=== PATIENT | male | born 1945 | race Caucasian/White ===

== ENCOUNTER → 2016-05-11 | Day surgery (SDC) | payer MEDICARE, OTHER, BC ==
[~2016-05-11] MED LIST: 1-ME1LIQ PO; ACETAMINOPHEN/HYDROcodone 325 MG/5 MG TAB ONE; BUPIVACAINE/EPINEPHRINE 0.5% 50 ML VIAL ONE; ELTR75TA PO; HYDR-2768 PO; LACTATED RINGER'S 1000 ML INJ 1,000 ML ONE; MIDAZOLAM HCL 2 MG/2 ML VIAL ONE; ONDANSETRON HCL 4 MG/2 ML VIAL IV PUSH ONE; PROPOFOL 100 MG/10 ML INJ IV ONE; TRIAMCINOLONE ACETONIDE 40 MG/ML VIAL ONE; ceFAZolin INJ 1,000 MG VIAL ONE
--- NOTE | 2016-05-11 21:22 | MP ---
cc: CLEOPATRA BEDOLLA DATE OF SURGERY 05/11/2016 PREOPERATIVE DIAGNOSIS Left knee medial meniscus tear. POSTOPERATIVE DIAGNOSES Left knee medial meniscus tear. PROCEDURE Left knee arthroscopic partial medial meniscectomy. SURGEON Dr. Damon Bedolla ANESTHESIA General. ESTIMATED BLOOD LOSS Less than 50 mL. TOURNIQUET TIME Zero minutes. JUSTIFICATION The patient is a 70-year male who injured the left knee, has had persistence of the pain in regard to his condition. Failed conservative treatment. His clinical exam as well as MRI confirmed the above-named findings. Patient was counseled as to risks, benefits and alternatives of the above named proposed surgical procedure. He did wish to proceed with surgery. PROCEDURE IN DETAIL A written consent obtained. The patient identified by name, taken to the operating room, placed supine on the operating table. General anesthesia was administered as well as 1 gram of IV Ancef. Left thigh was carefully placed in well-padded leg munguia. Left lower extremity was prepped and draped using isopropyl alcohol, Hibiclens solution and Chloraprep solution. A standard medial and lateral parapatellar arthroscope portal was established. The patellofemoral joint revealed grade 2 chondromalacia. The medial compartment revealed a complex tear of the posterior horn of the medial meniscus. The arthroscopic biter followed by arthroscopic shaver was introduced into the medial compartment to perform a partial medial meniscectomy. The meniscal rim was probed and noted to meniscectomy. There was evidence of grade 2 and some grade 3 chondromalacia changes in medial femoral condyle. The intercondylar notch for the anterior posterior cruciate ligaments noted to be intact. The lateral compartment was relatively free of meniscal pathology or chondromalacia. At the conclusion of the surgical procedure, the arthroscope portal was closed with 3-0 Prolene suture. Sterile dressing was applied. 25 mL of 0.5% Marcaine with epinephrine mixed with 40 mg of Kenalog was injected into the knee joint. Sterile dressing applied. The patient tolerated procedure well with no intraoperative complications noted. MD KEVIN Mckeon/ /4:52 PM /9:14 PM
== END | disposition home or self-care (01) ==
LOC: ESDC 13:47
PROVIDERS: ATTEND Orthopaedic Surgery Sports Medicine
DX: S83.232A Complex tear of medial meniscus, current injury, left knee, initial encounter (principal)
CPT/HCPCS: 01400; 29881; J0690; J2250; J2405; J3010; J3301; J7120